=== PATIENT | female | born 1985 | race Caucasian/White ===

== ENCOUNTER 2017-12-27 21:37 | Emergency (ER) | payer BC ==
[~2017-12-27] VITALS: Ht 167.6 cm; Wt 71.4 kg
[~2017-12-27 21:37] MED LIST: CELEXA10 MG PO; NORCO 325 MG-51 TAB PO; ZOFRAN 4MG T4 MG/TAB PO
[2017-12-27 21:53] VITALS: TEMP 98.8
[2017-12-27 22:09] LABS: COLLECTION METHOD CLEAN CATCH
[2017-12-27 22:15] LABS: PH 6 (5-8); SQUAMOUS EPITHELIAL 0-2 /hpf; URINE APPEARANCE Clear; URINE BACTERIA None Seen /hpf; URINE BILIRUBIN Negative (NEGATIVE); URINE BLOOD 1+ (NEGATIVE); URINE COLOR Yellow; URINE GLUCOSE Negative (NEGATIVE); URINE KETONE Negative (NEGATIVE); URINE LEUKOCYTE ESTERASE Negative (NEGATIVE); URINE NITRATE Negative (NEGATIVE); URINE PROTEIN(semi-quant) Negative (NEGATIVE); URINE RBC 0-2 /hpf; URINE UROBILINOGEN Negative (NEGATIVE)
[2017-12-27] MEDS ORDERED: PHENERGAN 25 TA25 MG PO (22:28)
[2017-12-27] MEDS ORDERED: DICLEGIS PO (22:28)
[2017-12-27] MEDS ORDERED: TIROSINT25 MC1 PO (22:50)
[2017-12-28 00:25] VITALS: BP 100/52; PULSE 67
== END 2017-12-28 00:30 | disposition home or self-care (01) ==
LOC: COL.ER 21:37
PROVIDERS: Emergency Medicine
DX: O21.9 Vomiting of pregnancy, unspecified (principal); Z3A.08 8 weeks gestation of pregnancy
CPT/HCPCS: J2405; J2550; J7030

== ENCOUNTER 2018-07-27 13:08 | Outpatient (CLI) | payer BC ==
[~2018-07-27] VITALS: Ht 170.2 cm; Wt 82.7 kg
[~2018-07-27 13:08] MED LIST changes: +DICLEGIS PO; +PHENERGAN 25 TA25 MG PO; +TIROSINT25 MC1 PO
--- NOTE | 2018-07-27 13:20 | NUR ---
Pt arrives on unit ambulatory at 39.0 weeks gestation. G4L0. States contractions that started last evening and continued this morning. Back pain present. Denies vaginal bleeding and leaking of fluid. Reports GFM. Changed into clean gown. EFM and toco applied. VSS. SVE per this RN 2-3/-2. Admission assessment completed. Updated on POC. Call light within reach. Bed locked in low position. No questions or concerns at this time. See physician notification.
[2018-07-27] MEDS ORDERED: PRENATAL MVI (13:26)
[2018-07-27] MEDS ORDERED: PROFERRIN ES12 MG PO (13:26)
--- NOTE | 2018-07-27 14:15 | NUR ---
SVE unchanged. FHR reactive. Dr. Block notified. Orders to discharge. Pt taken off monitors. Discharge instruction given. No questions or concerns. Leaves unit amnbulatory.
[2018-07-27 14:16] VITALS: BP 117/73; PULSE 89; TEMP 98.2
== END 2018-07-27 14:20 | disposition home or self-care (01) ==
LOC: LDRO 13:08 → LDR 13:15 → LDRO 14:20
DX: O62.9 Abnormality of forces of labor, unspecified (principal); Z3A.39 39 weeks gestation of pregnancy
CPT/HCPCS: OP

== ENCOUNTER 2018-07-27 20:24 | Inpatient (IN) | payer BC ==
[~2018-07-27] VITALS: Ht 170.2 cm; Wt 83.2 kg
[~2018-07-27 20:24] MED LIST changes: +PRENATAL MVI; +PROFERRIN ES12 MG PO
--- NOTE | 2018-07-27 20:35 | NUR ---
2034- Patient arrives to labor and delivery unit with c/o leakage of fluid with small amount of vaginal bleeding. Patient was seen today for "check labor" and was discharged home. 2039- EFM applied, Nitrazine vaginal swab test positive for spontaneous reupture of membranes. SVE /-1. 2044- Dr. Block called, updated on patient history, patient "grossly ruptured" with a nitrazine positive test. Provider states to admit patient to labor. (see physician notification)
[2018-07-27 21:00] VITALS: BP 133/80; PULSE 88; TEMP 98
[2018-07-27 21:30] VITALS: TEMP 98
[2018-07-27 21:43] VITALS: BP 133/80; PULSE 88; TEMP 98
[2018-07-27 21:47] LABS: BASO % 0.2 % (0.0-2.0); EOS # 0.1 (0.0-0.7); EOS % 0.6 % (0-4.0); GRAN % 74.6 % (42.2-75.2); HEMOGLOBIN 11.9 g/dl (12.5-16.0); LYMPH # 1.4 (1.2-3.4); LYMPH % 15.2 % (20.0-51.0); MEAN CELL VOLUME 95 fl (80.0-100.0); MEAN CORPUSCULAR HEMOGLOBIN 33 pg (27.0-31.0); MEAN CORPUSCULAR HGB CONC 35 g/dl (33.0-37.0); MEAN PLATELET VOLUME 10.3 fl (7.4-10.4); MONO # 0.8 (0.1-0.6); MONO % 8.6 % (1.7-9.3); PLATELET COUNT 241 K/mm3 (130-400); RED BLOOD COUNT 3.63 M/mm3 (4.10-5.30); REDCELL DISTRIBUTION WIDTH-CV 14.1 % (11.5-14.5)
[2018-07-27 21:57] LABS: HEMATOCRIT 34.4 % (37.0-47.0)
[2018-07-27 22:00] VITALS: BP 146/85; PULSE 68
[2018-07-27 23:30] VITALS: BP 135/85; PULSE 69; TEMP 98.7
[2018-07-28] VITALS (44 sets, daily range): BP systolic 90–133; BP diastolic 51–77; PULSE 69–107; TEMP 97.8–99
--- NOTE | 2018-07-28 06:45 | NUR ---
Patient c/o feeling pain and pressure with contractions. SVE - complete/+2. Plan of care reviewed with patient and spouse.
--- NOTE | 2018-07-28 07:10 | NUR ---
Patient begins to push with contractions with this nurse at bedside for instruction.
--- NOTE | 2018-07-28 07:45 | NUR ---
Dr. Abreu at bedside, reviews FHR tracing and evaluates pushing. Orders to start pitocin to bring contractions closer together. Pitocin started at 2mu per orders and protocol. Dr. Abreu remains on unit.
--- NOTE | 2018-07-28 08:40 | NUR ---
0825 Dr. Abreu to room. Patient prepped for delivery. Patient continues to push with contractions. 0840 Spontaneous vaginal delivery of viable male infant by Dr. Abreu. Cord clamped and cut and to the care of the nursery RN. 0849 Spontaneous delivery of placenta by Dr. Abreu. Pitcoin infusing at 333ml/hr per orders and protocol. Fundus firm with lochia WNL. Repair of 2nd degree perineal laceration by Dr. Abreu.
--- NOTE | 2018-07-28 11:50 | NUR ---
Patient assisted to bathroom, voids 300cc without difficulty. Pericare provided. When patient stands she appears pale and diaphoretic. Patient assisted to wheelchair and taken to room 214. Patient intstructed not to get out of bed without assist.
--- NOTE | 2018-07-28 13:10 | NUR ---
Patient assisted to bathroom, voids 400cc without difficulty. When patient stands she states that she "doesn't feel great", patient lowered to sitting position by this nurse and the patient's . Patient pale and diaphoretic. After sitting patient states that she feels "a little better" and is assisted to stand by her . Patient walks to bed with assist. BP 127/66 HR 70. Patient instructed not to get out of bed without assist.
--- NOTE | 2018-07-28 18:20 | NUR ---
Report recieved. Assisted to restroom. Patient reports she has ate and is feeling better. Ambulated well to restroom with stand-by assistance. Updated whiteboard and reviewed POC. Denied questions or concerns.
[2018-07-29] VITALS (12 sets, daily range): BP systolic 96–119; BP diastolic 49–74; PULSE 67–96; TEMP 97.7–98.8
[2018-07-29 07:09] LABS: HEMATOCRIT 19.5 % (37.0-47.0); HEMOGLOBIN 6.7 g/dl (12.5-16.0)
--- NOTE | 2018-07-29 10:29 | NUR ---
Initial visit; Family resting; Recording Engineer left card of congratulations for the of their son and information regarding the availabilty of spiritual care at [facility].
[2018-07-30 06:50] LABS: HEMATOCRIT 24.7 % (37.0-47.0); HEMOGLOBIN 8.3 g/dl (12.5-16.0)
[2018-07-30] MEDS ORDERED: MOTRIN 600600 MG/TAB PO (07:49)
[2018-07-30] MEDS ORDERED: PERCOCET 325 MG1 TA2 PO (07:49)
[2018-07-30 09:00] VITALS: BP 111/59; PULSE 82; TEMP 98.2
== END 2018-07-30 14:00 | disposition home or self-care (01) | DRG 806 ==
LOC: LDRO 20:24 → LDR 21:11 → OB 07-28 12:10
PROVIDERS: Obstetrics & Gynecology; ADMIT Obstetrics & Gynecology
PROC: 10E0XZZ Delivery of Products of Conception, External Approach (ICD-10-PCS; principal; 2018-07-28)
PROC: 0KQM0ZZ Repair Perineum Muscle, Open Approach (ICD-10-PCS; 2018-07-28)
DX: O42.02 Full-term premature rupture of membranes, onset of labor within 24 hours of rupture (principal); O36.0930 Maternal care for other rhesus isoimmunization, third trimester, not applicable or unspecified; Z37.0 Single live birth; Z3A.39 39 weeks gestation of pregnancy; O99.284 Endocrine, nutritional and metabolic diseases complicating childbirth; E03.9 Hypothyroidism, unspecified; O99.344 Other mental disorders complicating childbirth; F32.9 Major depressive disorder, single episode, unspecified; O70.1 Second degree perineal laceration during delivery
CPT/HCPCS: J1200; J2590; J2791; J7050; J7120; P9016

== ENCOUNTER → 2020-04-26 | Outpatient (CLI) | payer BC ==
[~2020-04-26] MED LIST changes: +IBU800 M1 PO; +LEVOXYL0.025 MG PO; +MOTRIN 600600 MG/TAB PO; +MOTRIN 800800 MG/TAB PO; +NATURAL IRON65 MG; +PERCOCET 325 MG1 TA2 PO; +PRENATAL TABLET PO; +PRILOSEC 20MG20 MG PO
== END | disposition home or self-care (01) ==
LOC: ZCOL.LAB 03:54
DX: Z20.828 Contact with and (suspected) exposure to other viral communicable diseases (principal)

== ENCOUNTER 2020-04-27 20:40 | Inpatient (IN) | payer BC ==
[2020-04-27] VITALS (9 sets, daily range): BP systolic 88–155; BP diastolic 43–80; PULSE 78–104; TEMP 98–98.5
[~2020-04-27] VITALS: Ht 170.2 cm; Wt 91.8 kg
[~2020-04-27 20:40] MED LIST changes: -IBU800 M1 PO; -LEVOXYL0.025 MG PO; -MOTRIN 800800 MG/TAB PO; -NATURAL IRON65 MG; -PRENATAL TABLET PO; -PRILOSEC 20MG20 MG PO
--- NOTE | 2020-04-27 20:45 | NUR ---
2044- pt. wheeled onto unit with by her side. orientated to room and changed into gown. reports GFM, unsure of SROM and a little bloody show at home. has been contrating every 3-5 minutes for the last few hours and getting more intense so she came in. 2050- EF and TOCO on and tracing. Vitals taken and SVE 5-6/90/-2 with buldgy bag noted. Dr. Campa, managed care liaison was on unit for other deliveries. Notofied her and got orders to admit and get an IV started. Assessment completed.
--- NOTE | 2020-04-27 21:24 | NUR ---
2123- DR. ZAVALA TO BEDSIDE TO BREAK WATER. AROM WITH MODERATE MEC STAINED FLUID NOTED. DR. ZAVALA NOTED SVE TO BE 7-8 AT THIS TIME. PT. TOLERATED PROCEDURE WELL. THIS RN REMAINS AT BEDSIDE.
[2020-04-27 21:30] LABS: BASO % 0.3 % (0.0-2.0); EOS % 0.2 % (0-4.0); GRAN # 9.4 (1.4-6.5); LYMPH # 1.2 (1.2-3.4); LYMPH % 10.7 % (20.0-51.0); MEAN CELL VOLUME 93 fl (80.0-100.0); MEAN CORPUSCULAR HEMOGLOBIN 31 pg (27.0-31.0); MEAN CORPUSCULAR HGB CONC 33 g/dl (33.0-37.0); MEAN PLATELET VOLUME 9.8 fl (7.4-10.4); MONO # 0.7 (0.1-0.6); MONO % 6.3 % (1.7-9.3); PLATELET COUNT 250 K/mm3 (130-400); RED BLOOD COUNT 3.87 M/mm3 (4.10-5.30); REDCELL DISTRIBUTION WIDTH-CV 14.2 % (11.5-14.5)
[2020-04-27 21:34] LABS: HEMATOCRIT 35.9 % (37.0-47.0)
--- NOTE | 2020-04-27 21:40 | NUR ---
2139- RANJITH, ERLINDA TO BESIDE FOR EPIDURAL PLACEMENT. PT HAD BEEN UNCOMFORTABLE AND IS A [address] ZAVALA AT 2134. DR[address] ZAVALA AND THIS RN HAVE BEEN IN THE ROOM. 2144- EPIDURAL PLACED, SEE ANESTHESIA RECORD. PT. TOLERATED WELL. 2154- DR. ZAVALA BACK TO BEDSIDE. PT MORE COMFORTABLE BUT STILL PUSHY DURING CONTRACTIONS. DR. ZAVALA CHECKS PATIENT AND SHE IS COMPLETE. THIS RN NOTIFIES NURSERY STAFF AND PREPS ROOM AND PT FOR DELIVERY. 2199- PT. DOES PRACTICE PUSH WITH DR. ZAVALA AND FHR DECELERATES DOWN TO THE 60S. FHR DOES NOT RECOVER AND IS HARD TO FIND DO TO MATERNAL POSITION. PT. KEEPS PUSHING PER DR. CASILLAS VERBAL ENCOURAGEMENT. 2202- OF VIABLE FEMALE INFANT. PLACED TO MOTHERS ABDOMEN. NURSERY NURSE ASSUMES CARE AT THIS TIME. CORD IS CUT AND TAKEN OVER TO WARMER FOR FURTHER EVALUATION. 2204- OF PLACENTA. 2ND DEGREE TEAR NOTED BY PROVIDER. PITOCIN STARTED PER PROTOCOL AT 333ML/HR. FUNDUS MASSAGED TO FIRM BY PROVIDER WITH SMALL AMOUNT OF BRIGHT RED BLOOD NOTED. EBL NOTED TO BE 300 0- 10MG OF EPHEDERINE GIVEN PER VERBAL ORDER FROM DR. ZAVALA FOR BP OF 88/50. 2214- REPAIRS FINISHED. FUNDUS FIRM. PT AND ROOM CLEANED UP AND PUT BACK TOGETHER. NEW CHUX, PAD AND ICEPACK TO PERINEUM. VITALS TAKEN, RECOVERY STARTED.
[2020-04-27] MEDS ORDERED: LEVOXYL0.025 MG PO (22:32)
[2020-04-27] MEDS ORDERED: PRILOSEC 20MG20 MG PO (22:33)
[2020-04-27] MEDS ORDERED: PRENATAL TABLET PO (22:33)
[2020-04-27] MEDS ORDERED: NATURAL IRON65 MG (22:33)
[2020-04-28 00:15] VITALS: BP 134/68; PULSE 73
--- NOTE | 2020-04-28 00:30 | NUR ---
0030- RN TO BEDSIDE TO HELP PATIENT TO BATHROOM TO GET CLEANED UP AND MOVED OUT TO PP UNIT. PT. TOLERATED WELL. CLEANED UP, NEW GOWN, NEW MESH UNDIES, PERIPAD AND ICEPACK TO PERINEUM. PT. AMBULATED TO PP ROOM WITH OUT ANY PROBLEMS.
[2020-04-28 01:15] VITALS: BP 126/69; PULSE 85; TEMP 98.6
[2020-04-28 05:30] VITALS: BP 131/67; PULSE 76; TEMP 98.5
[2020-04-28 08:01] VITALS: BP 125/68; PULSE 73; TEMP 97.8
[2020-04-28] MEDS ORDERED: IBU800 M1 PO (10:04)
[2020-04-28 22:00] VITALS: BP 123/65; PULSE 71; TEMP 97.7
[2020-04-29] MEDS ORDERED: PERCOCET 325 MG1 TA2 PO (09:20)
[2020-04-29] MEDS ORDERED: MOTRIN 800800 MG/TAB PO (09:20)
[2020-04-29 10:22] VITALS: BP 125/71; PULSE 68; TEMP 97.7
== END 2020-04-29 11:25 | disposition home or self-care (01) | DRG 807 ==
LOC: LDRO 20:40 → LDR 21:00 → OB 04-28 00:30
PROVIDERS: Obstetrics & Gynecology; ADMIT Obstetrics & Gynecology
PROC: 10E0XZZ Delivery of Products of Conception, External Approach (ICD-10-PCS; principal; 2020-04-27)
PROC: 0KQM0ZZ Repair Perineum Muscle, Open Approach (ICD-10-PCS; 2020-04-27)
PROC: 10907ZC Drainage of Amniotic Fluid, Therapeutic from Products of Conception, Via Natural or Artificial Opening (ICD-10-PCS; 2020-04-27)
DX: O99.02 Anemia complicating childbirth (principal); Z37.0 Single live birth; O99.344 Other mental disorders complicating childbirth; F32.9 Major depressive disorder, single episode, unspecified; O99.284 Endocrine, nutritional and metabolic diseases complicating childbirth; O70.1 Second degree perineal laceration during delivery; O26.893 Other specified pregnancy related conditions, third trimester; O66.0 Obstructed labor due to shoulder dystocia; E03.9 Hypothyroidism, unspecified; Z3A.39 39 weeks gestation of pregnancy; D64.9 Anemia, unspecified
CPT/HCPCS: J2400; J2590; J2791; J7120

== ENCOUNTER 2020-08-27 13:58 | Emergency (ER) | payer BC ==
[~2020-08-27] VITALS: Ht 170.2 cm; Wt 81.8 kg
[~2020-08-27 13:58] MED LIST changes: +IBU800 M1 PO; +LEVOXYL0.025 MG PO; +MOTRIN 800800 MG/TAB PO; +NATURAL IRON65 MG; +PRENATAL TABLET PO; +PRILOSEC 20MG20 MG PO
[2020-08-27 14:08] VITALS: BP 126/88; TEMP 98.4
[2020-08-27 14:26] LABS: COLLECTION METHOD CLEAN CATCH
[2020-08-27 14:29] LABS: BASO % 0.4 % (0.0-2.0); EOS # 0.1 (0.0-0.7); EOS % 0.9 % (0-4.0); GRAN # 3.7 (1.4-6.5); GRAN % 66.9 % (42.2-75.2); HEMOGLOBIN 12.7 g/dl (12.5-16.0); LYMPH # 1.4 (1.2-3.4); MEAN CELL VOLUME 95 fl (80.0-100.0); MEAN CORPUSCULAR HEMOGLOBIN 31 pg (27.0-31.0); MEAN CORPUSCULAR HGB CONC 33 g/dl (33.0-37.0); MEAN PLATELET VOLUME 8.9 fl (7.4-10.4); MONO # 0.4 (0.1-0.6); MONO % 6.6 % (1.7-9.3); PLATELET COUNT 374 K/mm3 (130-400); RED BLOOD COUNT 4.12 M/mm3 (4.10-5.30); REDCELL DISTRIBUTION WIDTH-CV 12.7 % (11.5-14.5)
[2020-08-27 14:33] LABS: MUCOUS Present /lpf; PH 5 (5-8); URINE APPEARANCE Clear; URINE BACTERIA None Seen /hpf; URINE BILIRUBIN Negative (NEGATIVE); URINE BLOOD 1+ (NEGATIVE); URINE COLOR Amber; URINE GLUCOSE Negative (NEGATIVE); URINE KETONE Negative (NEGATIVE); URINE LEUKOCYTE ESTERASE 1+ (NEGATIVE); URINE NITRATE Positive (NEGATIVE); URINE PROTEIN(semi-quant) 2+ (NEGATIVE); URINE UROBILINOGEN >=4.0 mg/dL (NEGATIVE)
[2020-08-27 14:40] LABS: ALBUMIN 4.3 gm/dL (3.5-5.0); BILIRUBIN,TOTAL 0.2 mg/dL (0.0-1.0); CALCIUM 9.4 mg/dL (8.4-10.2); POTASSIUM 3.7 mmol/L (3.4-5.0); TOTAL PROTEIN 7.4 gm/dL (6.4-8.2)
[2020-08-27] MEDS ORDERED: CIPRO 500MG TA500 MG PO (15:44)
[2020-08-27] MEDS ORDERED: NORCO 325 MG-51 TAB PO (15:44)
[2020-08-27 15:59] VITALS: PULSE 75
== END 2020-08-27 15:59 | disposition home or self-care (01) ==
LOC: COL.ER 13:58
PROVIDERS: Nurse Practitioner Primary Care
DX: N20.2 Calculus of kidney with calculus of ureter (principal); R11.0 Nausea; R10.32 Left lower quadrant pain; Z32.02 Encounter for pregnancy test, result negative; Z79.890 Hormone replacement therapy
CPT/HCPCS: J1885; J2405; Q9967